=== PATIENT | male | born 1970 | race Two or more races ===

== ENCOUNTER 2022-07-26 19:00 | Emergency (ER) | payer MEDICAID, OTHER ==
[~2022-07-26] VITALS: Ht 165.1 cm; Wt 94.8 kg
[2022-07-26 19:53] LABS: Urine Bacteria None Seen /hpf (None Seen)
[2022-07-26 20:07] LABS: Basophils # (auto) 0.1 10 ^3/uL (0-0.2); Basophils % (auto) 0.6 % (0.0-2.0); Eosinophils # (auto) 0.1 10 ^3/uL (0-0.8); Eosinophils % (auto) 1.5 % (0.0-7.0); Hematocrit 50.5 % (41.0-53.0); Hemoglobin 17.4 g/dL (13.5-17.5); Lymphocytes # (auto) 1.3 10 ^3/uL (0.4-5.4); Lymphocytes % (auto) 14.1 % (10.0-50.0); Mean Corpuscular Hemoglobin 29.6 pg (28.0-32.0); Mean Corpuscular Hgb Conc. 34.4 g/dL (32.0-36.0); Mean Corpuscular Volume 86.1 fL (80.0-100.0); Monocytes # (auto) 0.4 10 ^3/uL (0-1.3); Monocytes % (auto) 4.7 % (0.0-12.0); Neutrophils # (auto) 7.1 10 ^3/uL (1.6-8.6); Neutrophils % (auto) 79.1 % (37.0-80.0); Nucleated Red Blood Cells % 0.9 %; Red Blood Cells 5.87 10^6/uL (4.5-5.90); Red Cell Distribution Width 12.8 % (11.8-14.3); White Blood Cell 8.9 10^3/uL (4.4-10.8)
[2022-07-26 20:26] LABS: Albumin 3.7 g/dL (3.4-5.0); Calcium 8.5 mg/dL (8.5-10.1); Potassium 3.6 mmol/L (3.5-5.1)
[2022-07-26 20:36] LABS: BUN/Creatinine Ratio 10.3 (10.0-20.0); Total Protein 7.7 g/dL (6.4-8.2)
[2022-07-26] MEDS ORDERED: SODIUM CHLORIDE 0.9% 1,000 ML IV ONE (20:45)
[2022-07-26 21:13] LABS: Urine Specific Gravity 1.025 (1.001-1.035)
[2022-07-26 21:14] LABS: Urine Blood Negative /uL (Negative)
[2022-07-26 21:15] LABS: Urine Mucus FEW (None Seen); Urine WBC 0-2 /hpf (0 - 3)
[2022-07-26] MEDS ORDERED: ONDA-144 PO ×2 (21:41→21:43)
[2022-07-27] MEDS ORDERED: MAALOX PLUS or MAALOX 30 ML PO ONE (00:15)
[2022-07-27 01:05] VITALS: BP 137/92
== END 2022-07-27 01:05 | disposition home or self-care (01) ==
LOC: ER 19:00
DX: B34.9 Viral infection, unspecified (principal); E11.9 Type 2 diabetes mellitus without complications; I10 Essential (primary) hypertension; Z91.018 Allergy to other foods; Z98.890 Other specified postprocedural states; Z20.822 Contact with and (suspected) exposure to COVID-19
CPT/HCPCS: 36415; 71045; 80053; 81001; 82962; 85025; 87426; 87804; 96360; 99284; J7030